=== PATIENT | female | born 1955 | race Caucasian/White ===

== ENCOUNTER 2017-06-15 12:07 | Outpatient (CLI) | payer MEDICARE ==
--- NOTE | 2017-06-15 15:10 | MRI ---
BRAIN MRI WITH AND WITHOUT CONTRAST: Date: 06/15/17 HISTORY: Previous strokes. Patient has headaches and goes blank at times. Symptoms occur 2-3 times a week. COMPARISON: None. TECHNIQUE: Brain MRI is performed with and without intravenous Gadolinium administration. Multisequential, multi planar imaging is performed. FINDINGS: There is malacic and gliotic change involving the right occipital lobe and left parietal lobe. There is hemosiderin deposition on the axial gradient echo sequence. Remote injury/insult is suspected. Acu te parenchymal hemorrhages are not appreciated. There is no midline shift. Basilar cisterns are patent. With the exception of the regions of malacic and gliotic change as described above, cortical montague-white matter differentiation is preserved. There are minimal white matter hyperintensities due to chronic small vessel ischemic change. Calvarium has a normal T1 marrow signal intensity. Midline brain parenchymal structures are unremarka ble. Intrinsic T1 hyperintense, T2 hypointense focus in the left scalp soft tissues, near the vertex. A co mplex sebaceous cyst is favored. Central arterial flow-voids are maintained. Absent restricted diffusion. No pathologic enhancement of the brain parenchyma. IMPRESSION: 1. Unremarkable pre and postcontrast brain MRI, in terms of an acute intracranial process. 2. Remote insult with malacic and gliotic change, and hemosiderin deposition involving the right occ ipital lobe and left parietal lobe. POS: [facility]
== END 2017-06-15 12:08 | disposition home or self-care (01) ==
LOC: SCSMRI 12:07
PROVIDERS: ATTEND Psychiatry & Neurology Neurology
DX: I61.1 Nontraumatic intracerebral hemorrhage in hemisphere, cortical (principal)
CPT/HCPCS: 70553